=== PATIENT | female | born 1935 | race Caucasian/White ===

== ENCOUNTER 2016-08-09 13:36 | Inpatient (IN) | payer MEDICARE ==
[~2016-08-09] VITALS: Ht 152.4 cm; Wt 49.0 kg
[2016-08-09] VITALS (13 sets, daily range): BP systolic 126–148; BP diastolic 52–87
--- NOTE | 2016-08-09 13:39 | NUR ---
PT TO ER BED . SANJANA ARCEO, PT WAS FOUND ON FLOOR AT HOME ALTERED, LAST KNOWN WELL UNKNOWN. CHANGED TO GOWN. CONNECTED TO MONITOR. SIDE RAISL UP. HOB FLAT. Patient arrived in full C-Spine precautions with hard C-collar and backboard in place. ED notified. O2 VIA N/C @ 2 L/M. AT BEDSIDE FOR EVAL. Addendum: 08/09/16 at 1415 by ARSALAN Patient arrived on backboard and NOT in full C-Spine precautions without hard C-collar.
[2016-08-09] MEDS ORDERED: MIDAZOLAM HCL 2 MG/2ML VIAL ONE (13:40)
[2016-08-09 13:46] LABS: BASOPHILS # (AUTO) 0.1 /CMM (0.0-0.2); BASOPHILS % (AUTO) 0.5 % (0.0-2.0); EOSINOPHILS % (AUTO) 0.1 % (0.0-6.0); HEMATOCRIT 45 % (33-45); HEMOGLOBIN 14.5 g/dL (11.5-14.8); LYMPHOCYTES # (AUTO) 1.4 /CMM (0.8-4.8); LYMPHOCYTES % (AUTO) 8.4 % (20.0-44.0); MEAN CORPUSCULAR HEMOGLOBIN 27 PG (26.0-33.0); MEAN CORPUSCULAR HGB CONC 32 g/dl (31.0-36.0); MEAN CORPUSCULAR VOLUME 85 fL (82-100); MONOCYTES # (AUTO) 0.8 /CMM (0.1-1.30); MONOCYTES % (AUTO) 4.8 % (2.0-12.0); NEUTROPHILS # (AUTO) 14.2 /CMM (1.8-8.9); NEUTROPHILS % (AUTO) 86.2 % (43.0-81.0); PLATELET COUNT (AUTO) 289 /CMM (150-450); RDW COEFFICIENT OF VARIATION 12.9 (11.5-15.0); WHITE BLOOD COUNT (AUTO) 16.5 K/uL (4.3-11.0)
--- NOTE | 2016-08-09 13:54 | NUR ---
URINE SAMPLE COLLECTED VIA 16Fr AMADOR CATHETER. PT TOLERATED PROCEDURE WELL. ( ) FR amador catheter inserted per sterile protocal. Immediate output (100 )ML of urine, color (YELLOW ), clarity (CLEAR ). Female yarder accompanied female patient for (AMADOR CATHETER ).
[2016-08-09 13:56] LABS: CALCIUM, SERUM 10.3 mg/dL (8.5-10.1); CREATININE 0.7 mg/dL (0.6-1.3); POTASSIUM 4.2 mmol/L (3.5-5.1)
[2016-08-09] MEDS ORDERED: IV SET PRIMARY PUMP SET 1 EA INFUS.SET MC ONE ×3 (13:58→18:10)
[2016-08-09] MEDS ORDERED: IV NS 0.9% 1,000 ML ONE (13:58)
--- NOTE | 2016-08-09 13:58 | NUR ---
BLOOD CULTURES COLLECTED BY PRIMARY HEALTH ORGANISATION MANAGER PRIOR TO IV ATB ADMINISTRATION.
[2016-08-09] MEDS ORDERED: IV NS 0.9% 1,000 ML BAG IV ONE (14:00)
[2016-08-09] MEDS ORDERED: MIDAZOLAM HCL 2 MG/2ML VIAL IV ONE (14:00)
[2016-08-09 14:02] LABS: ALBUMIN 4.2 g/dL (3.4-5.0); BILIRUBIN,DIRECT 0.4 mg/dL (0.0-0.2); BILIRUBIN,TOTAL 1.5 mg/dL (0.2-1.0)
[2016-08-09 14:17] LABS: TROPONIN I 0.513 ng/mL (0.00-0.056)
[2016-08-09] MEDS ORDERED: LORAZEPAM INJ 2 MG/ML VIAL ONE ×2 (14:17→15:16)
[2016-08-09 14:18] LABS: APPEARANCE,URINE Clear (CLEAR); BILIRUBIN,URINE Negative (NEGATIVE); BLOOD, URINE Trace-lysed Ery/uL (NEGATIVE); COLOR,URINE Dark (YELLOW); KETONES,URINE 15 (NEGATIVE); LEUKOCYTE ESTERASE ,URINE Negative (NEGATIVE); NITRITE, URINE Negative (NEGATIVE); PH,URINE 5.5 (5.0-8.0); PROTEIN,URINE 100 mg/dl (NEGATIVE); UGLUCOSE Negative (NEGATIVE); UROBILINOGEN,URINE 0.2 EU/dL (0.2)
[2016-08-09] MEDS ORDERED: CT SWABBABLE VALVE TRANS SET 1 EA INFUS.SET MC ONE (14:20)
[2016-08-09] MEDS ORDERED: IOHEXOL-350 100 ML VIAL IV ONE (14:20)
[2016-08-09] MEDS ORDERED: IV NS 0.9% 250 ML IV ONE (14:20)
[2016-08-09] MEDS ORDERED: LORAZEPAM INJ 2 MG/ML VIAL IV ONE ×2 (14:30→15:30)
[2016-08-09 14:35] LABS: LACTIC ACID 1.9 mmol/L (0.4-2.0)
--- NOTE | 2016-08-09 14:38 | NUR ---
CALLED, TRANSFERRED CALL TO
--- NOTE | 2016-08-09 14:42 | NUR ---
1 MG OF ATIVAN GIVEN PER DR. SHEEHAN'S ORDER, THE DOSE WAS EFFECTIVE FOR PATIENT.
[2016-08-09 14:43] LABS: RBC,URINE 0-3 /HPF (0-2); WBC,URINE 0-2 /HPF (0-3)
[2016-08-09 14:44] LABS: ADD URINE CULTURE NO; BACTERIA,URINE Few /HPF (None Seen); SQUAMOUS EPITHELIAL CELL,UR Few /HPF (None Seen)
[2016-08-09] MEDS ORDERED: NICARDIPINE IN DEXTROSE,ISO-OS 200 ML IV ONE (14:48)
--- NOTE | 2016-08-09 14:50 | NUR ---
CALLED NURSING SUP. FOR ICU BED
[2016-08-09] MEDS ORDERED: NICARDIPINE IN DEXTROSE,ISO-OS 200 ML IV PRN ×2 (15:00→17:30)
--- NOTE | 2016-08-09 15:05 | NUR ---
EPIC PAGED, DR KHADRA Vo HUMIDIFIER MAINTENANCE WORKER
[2016-08-09] MEDS ORDERED: LABETALOL 20 MG/4 ML VIAL ONE (15:09)
[2016-08-09 15:10] LABS: INR 0.99 (0.87-1.13); PROTHROMBIN TIME 10.7 SECS (9.5-12.7)
[2016-08-09] MEDS ORDERED: LABETALOL 20 MG/4 ML VIAL IV ONE (15:30)
--- NOTE | 2016-08-09 15:40 | NUR ---
CARDENE INCREASED TO 7MG/HR
[2016-08-09 16:02] LABS: CREATINE KINASE MB 12.6 ng/mL (0-3.6)
[2016-08-09] MEDS ORDERED: Z GUARD REMEDY 2 OZ OINT TP PRN (16:30)
[2016-08-09] MEDS ORDERED: MORPHINE SULFATE INJ 2 MG/ML DISP.SYRIN IV PRN (16:30)
[2016-08-09] MEDS ORDERED: ACETAMINOPHEN 650 MG/SUPP.RECT RC PRN (16:30)
[2016-08-09] MEDS ORDERED: ONDANSETRON HCL/PF 4 MG/2 ML VIAL IVP PRN (16:30)
--- NOTE | 2016-08-09 17:15 | NUR ---
METALS ANALYST; ASSESSMENT RECEIVED PT FROM ER VIA RNEY. PT PLACED ON ICU BED AND ASPHALT SCREED OPERATOR. NOTED SINUS TACH RHYTHM.NOTED PT ON CARDENE DRIP AT 7MG/HR. WILL CLARIFY ORDERS WITH PRIMARY MD FOR B/P PARAMETERS. NOTED RIGHT HEMIPLEGIA WITH LEFT SIDE LOWER EXTREMITY POSTURING TO PAINFUL STIMULI. NOTED CASPER PUPILS SLUGGISH AND ABOUT 1CM OF DILATION. NOTED MULTIPLE BRUISING TO RIGHT SIDE OF FACE, ARM, AND HIP. PT NON VERBAL RESPONSIVE TO DEEP PAINFUL STIMULI. NOTED LEFT SIDE OF BODY MOVING BUT WITH NO PURPOSEFUL MOVEMENT. WILL CONTINUE TO MONITOR CLOSELY FOR CHANGES OF MENTAL STATUS
[2016-08-09] MEDS: DEXAMETHASONE SOD PHOSPHATE 10 MG/ML VIAL IV SCH ×2 (17:16→21:20)
[2016-08-09 18:00] LABS: ABG BASE EXCESS -1.6 mmol/L; ABG PCO2 32.7 mmHg (35.0-45.0); ABG PH 7.439 (7.350-7.450); ABG PO2 99.9 mmHg (75.0-100.0); ABG TOTAL HEMOGLOBIN 11.4 G/dL (12.0-16.0); AaDO2 75.6 mmHg; COHb 3.1 % (0.5-1.5); MetHb 1.1 % (0.0-1.5); O2Hb 93.3 % (94.0-97.0); SITE, ABG Right Radial
[2016-08-09] MEDS: IV D5/0.45 NACL 1,000 ML IV PRN (18:15)
--- NOTE | 2016-08-09 18:32 | NUR ---
CERTIFIED MASSAGE THERAPIST; MD PRIMARY DR. KHADRA RODRIGUEZ AT BEDSIDE UPDATE GIVEN. DR. GAVIRIA WAS ABLE TO SPEAK WITH PTS DAUGHTER JAIDEN AND GIVE HER UPDATE OF PTS STATUS AND PLAN OF CARE AND PTS PROGNOSIS. NEW ORDERS GIVEN FOR ABG, STAT HEAD CT AND PARAMETERS FOR CARDENE DRIP. ORDERS ENTERED
--- NOTE | 2016-08-09 19:35 | NUR ---
PHOTOLITHOGRAPHER RCD PT WITH ACUTE INTRACRANIAL HEMORRHAGE; PT IS NON RESPONSIVE; NSR ON MONITOR. CLEAR LUNG SOUNDS ON 02 2L NC. DAY CATHETER DRAINING SMALL AMOUNT OF DARK URINE. MONITOR BP; CARDENE DRIP NEEDED.
[2016-08-10] VITALS (31 sets, daily range): BP systolic 111–169; BP diastolic 53–107
[2016-08-10] MEDS: DEXAMETHASONE SOD PHOSPHATE 10 MG/ML VIAL IV SCH ×6 (01:36→20:07)
[2016-08-10 05:44] LABS: BASOPHILS % (AUTO) 0.6 % (0.0-2.0); HEMATOCRIT 38 % (33-45); HEMOGLOBIN 12.3 g/dL (11.5-14.8); LYMPHOCYTES # (AUTO) 0.8 /CMM (0.8-4.8); LYMPHOCYTES % (AUTO) 9.6 % (20.0-44.0); MEAN CORPUSCULAR HEMOGLOBIN 28 PG (26.0-33.0); MEAN CORPUSCULAR HGB CONC 33 g/dl (31.0-36.0); MEAN CORPUSCULAR VOLUME 85 fL (82-100); MONOCYTES # (AUTO) 0.2 /CMM (0.1-1.30); MONOCYTES % (AUTO) 1.8 % (2.0-12.0); NEUTROPHILS # (AUTO) 7.3 /CMM (1.8-8.9); PLATELET COUNT (AUTO) 215 /CMM (150-450); RDW COEFFICIENT OF VARIATION 13.7 (11.5-15.0); RED BLOOD CELL COUNT(AUTO) 4.44 MIL/uL (4.0-5.2); WHITE BLOOD COUNT (AUTO) 8.3 K/uL (4.3-11.0)
[2016-08-10 05:45] LABS: THYROID STIMULATING HORMONE 0.424 uIU/mL (0.358-3.74)
[2016-08-10 05:49] LABS: CALCIUM, SERUM 9.2 mg/dL (8.5-10.1); CREATININE 0.6 mg/dL (0.6-1.3); PHOSPHORUS 2.8 mg/dL (2.5-4.9); POTASSIUM 3.6 mmol/L (3.5-5.1)
--- NOTE | 2016-08-10 06:22 | NUR ---
AGRISCIENCE TECHNOLOGY INSTRUCTOR MULTIPLE CALLS TO RADIOLOGY FOR HEAD CT RESULTS; THEY WILL CALL FOR IT TO BE READ. RESULTS CONTINUE TO BE PENDING.
--- NOTE | 2016-08-10 06:47 | NUR ---
SWEAT BAND SEPARATOR S/W CRYSTAL REGARDING HEAD CT; WILL PLACE IN ORDER TO BE READ BY .
[2016-08-10] MEDS: IV D5/0.45 NACL 1,000 ML IV PRN ×2 (06:51→07:14)
--- NOTE | 2016-08-10 07:30 | NUR ---
DR MUÑIZ IN TO EXAMINE PT AND R/V LABS. PT CURRENTLY UNRESPONSIVE WITH HEAD TURNED TO LEFT. RT UPPER AND LOWER EXTREMS FLEXED AND WITHOUT MOVEMENT. PUPILS PINPOINT AND NON REACTIVE
--- NOTE | 2016-08-10 08:00 | NUR ---
PT SUDDENLY AWAKE AND CONVERSANT WITH DYSARTHRIC SPEECH, INTACT SENSE OF HUMOR, ASKING QUESTIONS REGARDING EVENTS. ABOUT 50% OF SPEECH IS INTELLIGIBLE. MILD RUE/RLE HEMIPARESIS. CANDACE. TENDS TO LEAN TO RT AND MOVES BODY RT SIDE RAILS
[2016-08-10 08:21] LABS: CREATINE KINASE MB 3.1 ng/mL (0-3.6)
[2016-08-10] MEDS ORDERED: PANTOPRAZOLE 40 MG VIAL IV SCH (09:00)
--- NOTE | 2016-08-10 09:00 | NUR ---
DR KHADRA RODRIGUEZ IN TO R/V. SEE NEW ORDERS
--- NOTE | 2016-08-10 10:00 | NUR ---
SPEECH RX UNAVAILABLE. BEDSIDE SWALLOW W RN AND FAMILY-NO COUGH NO DELAY. PT C/O HUNGER AND WANTS TO BE FED
--- NOTE | 2016-08-10 12:00 | NUR ---
GOAL SBP 160 MET WITHOUT RX. OK FULL LIQS WELL. NO CHANGE IN NEURO
--- NOTE | 2016-08-10 15:58 | NUR ---
REMAINS AWAKE, CONVERSANT ALBEIT 50% OF SPEECH IS DYSPHASIC. NO PROBLEMS SWALLOWING. HAS RT SIDED NEGLECT AND DOES NOT MOVE RUE TO COMMAND BUT DOES USE RUE SPONTANEOUSLY
--- NOTE | 2016-08-10 18:29 | NUR ---
CONTINUED IMPROVEMENT IN NEURO. NOW FEEDING HERSELF WITH HER RIGHT HAND A CHOPPED CARDIAC DIET-100% EATEN PLUS OUTSIDE FOOD. CONTINUALLY INTERACTIVE WITH SOME FULL CLEAR APPROPRIATE SENTENCES. VERY WARM SENSE OF HUMOR BUT IS FRUSTRATED WITH HER DYSPHASIA. RT SIDED NEGLECT WITH MILD WEAKNESS RUE/RLE REMAIN. SBP 160 GOAL WITHOUT ANTIHYPERTENSIVES
--- NOTE | 2016-08-10 19:46 | NUR ---
FRUIT DRYER RCD PT A/O x3; PT SPEECH CLEAR/GARBLED. ST ON MONITOR. ON ROOM AIR. NO DISTRESS NOTED. DAY CATHETER DRAINING ADEQUATE AMOUNT OF YELLOW URINE. DAUGHTER AT BEDSIDE. PT ABLE TO RAISE BOTH ARMS HOWEVER UNABLE TO CARTON MARKER MACHINE WITH RIGHT HAND. PT ASKING QUESTIONS ABOUT WHEN SHE WILL BE GET TO GO HOME. CONTINUE TO MONITOR.
--- NOTE | 2016-08-10 22:00 | NUR ---
BOBBIN PAINTER UPON PT DAUGHTER LEAVING PT BECAME RESTLESS WITH MOMENTS OF CONFUSION. PULLING AT IV LINES AND ATTEMPTING TO GET OUT OF BED. CALLED PLACED TO DAUGHTER TO INFORM OF NEED TO PLACE BL SOFT WRIST RESTRAINTS. DAUGHTER OPTED TO COME SIT WITH PT INSTEAD. CONTINUE TO MONITOR.
[2016-08-11] VITALS (29 sets, daily range): BP systolic 126–197; BP diastolic 58–137
--- NOTE | 2016-08-11 00:08 | NUR ---
ROUTE DELIVERY SERVICE DRIVER DAUGHTER LEFT BEDSIDE. PT CALM AT THIS TIME. REQUESTING TO SLEEP. CONTINUE TO MONITOR.
--- NOTE | 2016-08-11 00:56 | NUR ---
LINE PALLETIZER PT SLEEPING AT THIS TIME.
[2016-08-11] MEDS: DEXAMETHASONE SOD PHOSPHATE 10 MG/ML VIAL IV SCH ×2 (01:07→05:43)
[2016-08-11 05:21] LABS: BASOPHILS % (AUTO) 0.1 % (0.0-2.0); HEMATOCRIT 35 % (33-45); HEMOGLOBIN 11.5 g/dL (11.5-14.8); LYMPHOCYTES # (AUTO) 1.1 /CMM (0.8-4.8); LYMPHOCYTES % (AUTO) 7.3 % (20.0-44.0); MEAN CORPUSCULAR HEMOGLOBIN 28 PG (26.0-33.0); MEAN CORPUSCULAR HGB CONC 33 g/dl (31.0-36.0); MEAN CORPUSCULAR VOLUME 84 fL (82-100); MONOCYTES # (AUTO) 0.4 /CMM (0.1-1.30); MONOCYTES % (AUTO) 2.5 % (2.0-12.0); NEUTROPHILS # (AUTO) 13.8 /CMM (1.8-8.9); NEUTROPHILS % (AUTO) 90.1 % (43.0-81.0); PLATELET COUNT (AUTO) 217 /CMM (150-450); RDW COEFFICIENT OF VARIATION 13.5 (11.5-15.0); RED BLOOD CELL COUNT(AUTO) 4.16 MIL/uL (4.0-5.2); WHITE BLOOD COUNT (AUTO) 15.3 K/uL (4.3-11.0)
[2016-08-11 05:38] LABS: TROPONIN I 0.088 ng/mL (0.00-0.056)
[2016-08-11 05:39] LABS: BILIRUBIN,TOTAL 0.6 mg/dL (0.2-1.0); CALCIUM, SERUM 9.4 mg/dL (8.5-10.1); CREATININE 0.7 mg/dL (0.6-1.3); MAGNESIUM 1.9 mg/dL (1.8-2.4); PHOSPHORUS 2.1 mg/dL (2.5-4.9); POTASSIUM 3.6 mmol/L (3.5-5.1); TOTAL PROTEIN, SERUM 6.3 g/dL (6.4-8.2)
[2016-08-11] MEDS: IV D5/0.45 NACL 1,000 ML IV PRN (05:45)
--- NOTE | 2016-08-11 07:30 | NUR ---
PT AWAKE, RESTLESS, BUT COOPERATIVE. SENSE OF HUMOR INTACT. SPEECH DYSPHASIC WITH SOME WHOLE COMPLETE CLEAR SENTENCES-UNCHANGED. RT SIDED NEGLECT UNCHANGED. RT UE AND LE HEMIPARESIS UNCHANGED. ABLE TO SWALLOW WELL. D/W DR MUÑIZ HTN AND RX. LABS R/V'D. MEDS FOR HTN ADDED. NEURO UNCHANGED EXCEPT FOR RESTLESSNESS. D/W . STEROID DOSING REDUCED
[2016-08-11] MEDS: PANTOPRAZOLE 40 MG TABLET.DR PO SCH (07:41)
[2016-08-11] MEDS: NIFEdipine XL (30MG) 30 MG TAB PO SCH (07:42)
[2016-08-11] MEDS ORDERED: NITROGLYCERIN PACKET 1 GM PACKET TOP SCH ×3 (08:00→12:00)
[2016-08-11] MEDS ORDERED: hydrALAZINE HCL IV 20 MG VIAL ONE (09:28)
[2016-08-11] MEDS: hydrALAZINE HCL 25 MG TABLET PO SCH ×3 (09:30→20:42)
[2016-08-11] MEDS ORDERED: hydrALAZINE HCL IV 20 MG VIAL IV PRN (09:30)
--- NOTE | 2016-08-11 09:51 | NUR ---
ONGOING D/W DR MUÑIZ REGARDING HTN. PT RESTLESS BUT WITHOUT CHANGE IN NEURO STATUS. RX WITH IVP APRESOLINE, PO PROCARDIA, NTG PASTE CHEST WALL WITH DECREASE IN HTN-SEE VS
--- NOTE | 2016-08-11 11:35 | NUR ---
D/W DR RODRIGUEZ AND PT'S CHILDREN BP, MEDS, NEURO, CONFUSION, REHAB PLAN ? [facility]. ALL DECADRON D/C'D-"NO NEED FOR TAPER" PER
[2016-08-11] MEDS ORDERED: DEXAMETHASONE SOD PHOSPHATE 10 MG/ML VIAL IV SCH (12:00)
--- NOTE | 2016-08-11 13:08 | NUR ---
EPISODIC HTN RX WITH MEDS ORDERED WITH RESOLUTION
--- NOTE | 2016-08-11 15:45 | NUR ---
NEUROLOGIST DR RODRÍGUEZ IN TO EXAMINE PT. FOR CAROTID STUDY IN AM
[2016-08-11] MEDS ORDERED: K PHOS NEUTRAL 250 MG TABLET PO ONE (16:00)
[2016-08-11 17:24] LABS: CANNABINOID, URINE NEGATIVE (NEGATIVE); PHENCYCLIDINE SCREEN,URINE NEGATIVE (NEGATIVE)
[2016-08-11] MEDS: NITROGLYCERIN 30 GM TUBE TP SCH ×2 (18:03→23:47)
--- NOTE | 2016-08-11 18:14 | NUR ---
OOB TO CHAIR TO EAT. REQ. 2 PEOPLE WAS VERY WEAK AND COULD NOT SUPPORT HER WEIGHT. SPEECH REMAINS EXPRESSIVE AND RECEPTIVE DYSPHASIA. RT UE AND LE HEMIPARESIS. BP UNDER BETTER CONTROL ON RX
--- NOTE | 2016-08-11 20:00 | NUR ---
PUMP ERECTOR HELPER PT IN BED RESTING .PT DENIES ANY SOB ON ROOM AIR. PT C/O DISCOMFORT NEAR FC. FAMILY AT BEDSIDE. DAUGHTER UPDATED. DALIA CARE DONE AND DAY ANCHORED TO LEG FOR DISCOMFORT. REPOSITIONED AND FLUIDS PROVIDED. IV INTACT AND PATIENT . HOB ELEVATED . BP TO NBE KEPT BETWEEN 140-160 . WILL CONTINUE TO MONITOR.
[2016-08-12] VITALS (10 sets, daily range): BP systolic 128–154; BP diastolic 62–89
--- NOTE | 2016-08-12 02:15 | NUR ---
LIBRARY MEDIA TECHNICIAN BP LOW . NITRO PATCH REMOVED TO MAINTAIN GOAL SBP
--- NOTE | 2016-08-12 04:00 | NUR ---
RN NOTES ADMITTED A 80 YEARS OLD FEMALE PT FROM ICU WITH PRIMARY DIAGNOSIS OF ACUTE INTRACRANIAL HEMORRHAGE UNDER DR. RODRIGUEZ. PT ALERT AND ORIENTED X2 WITH CONFUSION AND FORGETFULNESS. VITAL SIGNS STABLE, AFEBRILE. NO SOB, NOT IN DISTRESS AND TOLERATING ROOM AIR. DENIES PAIN, NAUSEA AND VOMITING. VERBALIZING DISCOMFORT WITH DAY CATH. LEFT AND RIGHT FOREARM IV ACCESS PATENT AND INTACT. ATTACHED TO TELEMONITOR WHICH READS SINUS RHYTHM WITH PAC'S AND INVERTED T WAVE. NOTED WITH BRUISING ON LEFT SIDE OF THE FACE, BOTH UPPER EXTREMITY AND RIGHT KNEE SECONDARY TO FALL. DAY CATH INTACT WITH CLEAR URINE OUTPUT AT 1200ML, FOR D/C AT 0600 ORDERED. KEPT COMFORTABLE AND ATTENDED. WILL CONTINUE TO MONITOR PT.
[2016-08-12] MEDS: hydrALAZINE HCL 25 MG TABLET PO SCH ×3 (05:00→20:49)
--- NOTE | 2016-08-12 05:21 | NUR ---
PRICING/SIGNAGE TEAM MEMBER PT TRANSFERRED TO 3W ROOM 309 . NO BELONGINGS FOUND BEDSIDE BESIDES A HEEL PROTECTOR , NO BELONGINGS LIST IN CHART. PT TRANSFERRED W HEEL PROTECTOR. REPORT GIVEN TO JAYME MORRIS. WILL INFORM FAMILY OF ROOM CHANGE.
--- NOTE | 2016-08-12 05:21 | NUR ---
RN NOTES APRESOLIN 50 MGS NOT ADMINISTERED PER PARAMETER, BP IS 130/57.
[2016-08-12] MEDS: NITROGLYCERIN 30 GM TUBE TP SCH ×3 (06:00→17:42)
--- NOTE | 2016-08-12 06:00 | NUR ---
RN NOTES DAY CATH REMOVED ORDERED, WITH URINE OUTPUT AT 1300ML.
--- NOTE | 2016-08-12 06:16 | NUR ---
RN NOTES NITROL OINTMENT NOT ADMINISTERED PER BP PARAMETER, BP 128/62.
--- NOTE | 2016-08-12 07:45 | NUR ---
teleservices representative initial notes received patient in bed, awake, head of bed elevated, no SOB or distress noted. on room air and tolerated well. Patient is alert and oriented x 2 with confusion, british speaking with a little burkinan. On tele monitor ST heart rate of 103. No facial grimace noted. IV intact and patent HL only. Endorsed by weight shifter s/p amador removal will monitor for urine retention. Kept patient clean and comfortable in bed, call light with in patient reach, will continue to monitor accordingly.
--- NOTE | 2016-08-12 07:55 | NUR ---
RN NOTES.. PT ASLEEP IN BED, NO SOB, NOT IN DISTRESS , NO SIGNS OF DISCOMFORT NOTED, TOLERATING ROOM AIR. HYDRALAZINE 50MG AND NITRO OINTMENT NOT ADMINISTERED PER BP PARAMETER. NOTED WITH PERIODS OF FORGETFULNESS AND CONFUSION, REORIENT PT NEEDED. DAY CATH WAS REMOVED, PLS MONITOR FOR RETENTION. KEPT CLEAN AND DRY. ALL NEEDS ATTENDED. WILL ENDORSE TO MORNING RN FOR ELEANOR.
[2016-08-12] MEDS: PANTOPRAZOLE 40 MG TABLET.DR PO SCH (09:00)
[2016-08-12] MEDS: NIFEdipine XL (30MG) 30 MG TAB PO SCH (09:00)
--- NOTE | 2016-08-12 12:26 | NUR ---
well driller notes Held Hydralazine and Nitro due to BP 130/66. Will continue to monitor accordingly.
--- NOTE | 2016-08-12 15:54 | NUR ---
negotiator sales notes Result of the lab taken 08/10/16 LDL of 119 and patient refused to take any medications except of the current medication profile. Explained the risk and benefits to the patient and family and still refused statin medications. Will continue to monitor accordingly.
--- NOTE | 2016-08-12 19:11 | NUR ---
telegraph repeater installer closing notes All needs provided, attended, and anticipated. On tele monitor ST heart rate of 115. No complaint of pain or discomfort. kept patient clean and comfortable in bed, call light with in patient reach, will continue to monitor accordingly. Endorsed to next shift RN to continue care.
--- NOTE | 2016-08-12 19:13 | NUR ---
RN NOTES RECEIVED PT IN BED, WITH DAUGHTER AT BEDSIDE, ALERT AND ORIENTED X2 WITH PERIODS OF CONFUSION NOTED, NO SOB, NOT IN DISTRESS, DENIES ANY PAIN AT THIS TIME. ON ROOM AIR AND TOLERATED WELL. TELEMONITOR READS SINUS TACH WITH HEART RATE AT 103. IV ACCESS ON RIGHT AND LEFT FOREARM PATENT AND INTACT, NO SIGN OF INFILTRATE NOTED. KEPT BED IN THE LOWEST POSITION, LOCKED, SIDE RAILS UP, WITH CALL LIGHT WITH IN REACH. WILL CONTINUE TO MONITOR PT.
--- NOTE | 2016-08-12 20:00 | NUR ---
RN NOTES PT WAS MOVED TO RM 329 BECAUSE PT IS HAVING DISCOMFORT AT THE SCENT OF THE ROOM.
[2016-08-13] VITALS (9 sets, daily range): BP systolic 131–166; BP diastolic 61–109
--- NOTE | 2016-08-13 00:47 | NUR ---
RN NOTES NITROL OINTMENT NOT ADMINISTERED PER BP PARAMETER, BP 131/61.
[2016-08-13] MEDS: hydrALAZINE HCL 25 MG TABLET PO SCH ×3 (04:58→20:00)
[2016-08-13] MEDS: NITROGLYCERIN 30 GM TUBE TP SCH ×5 (06:37→23:44)
--- NOTE | 2016-08-13 07:25 | NUR ---
RN NOTES PT ASLEEP IN BED, NO SOB, NO SIGNS OF DISTRESS AND DISCOMFORT NOTED, TOLERATING ROOM AIR. ALL DUE MEDS GIVEN, VITAL SIGNS STABLE, AFEBRILE. NO EPISODE OF NAUSEA AND VOMITING . NO COMPLAIN OF PAIN. TELEMONITOR READS SINUS TACH AT 102. ALL NEEDS ATTENDED. KEPT CLEAN AND DRY, FALL PTRECAUTION OBSERVED. ENDORSED TO MORNING RN FOR CONTINUITY OF CARE.
--- NOTE | 2016-08-13 07:30 | NUR ---
pilot initial notes Received patient in bed, awake, head of bed elevated, no SOB or distress noted. Alert and oriented x 2 with confusion. On tele monitor ST heart rate of 115. No facial grimace noted. Bed alarm on. IV intact and patent. Kept patient clean and comfortable in bed, call light with in patient reach, will continue to monitor accordingly.
[2016-08-13] MEDS: NIFEdipine XL (30MG) 30 MG TAB PO SCH (09:00)
[2016-08-13] MEDS: PANTOPRAZOLE 40 MG TABLET.DR PO SCH (09:00)
--- NOTE | 2016-08-13 09:38 | NUR ---
electric meter technician notes patient refused to take her medications and daughter Isidra at bedside, explained the risk and benefits to the patient and daughter and able to understand and still refused medications. Per daughter her mom doesn't really take any medications. Will monitor patient accordingly.
--- NOTE | 2016-08-13 12:23 | NUR ---
MS RN NOTES Patient refused to take her medications explained the risk and benefits x 3 and still refused. Will continue to monitor patient accordingly.
--- NOTE | 2016-08-13 19:21 | NUR ---
MS RN closing notes All needs provided, attended, and anticipated. endorsed to next shift RN to continue care. Kept patient clean and comfortable in bed, call light with in patient reach, will continue to monitor accordingly.
--- NOTE | 2016-08-13 19:30 | NUR ---
MS RN OPENING NOTES: PATIENT IN BED, AOX2, CONFUSED AND APPEARS ANXIOUS. VERBALIZES THAT SHE DOES NOT WANT TO TAKE ANY MEDICATIONS ANYMORE. DAUGHTER AT BEDSIDE. ON ROOM AIR, BREATHING EVEN AND UNLABORED. BREATH SOUNDS CLEAR TO AUSCULTATION. NOTED BRUISING OVER R SIDE OF FACE, WELL ON R KNEE. NOTED R SIDED WEAKNESS WELL. NO GROSS ASYMMETRY OF FACE OR FACIAL DROOP NOTED. PATIENT DID HAVE DIFFICULTY PUTTING TOGETHER HER SENTENCE, BUT WAS OTHERWISE ABLE TO MAKE NEEDS KNOWN. PIV ACCESS OVER LFA G 20 INTACT AND PATENT TO FLUSH. PROVIDED FOR COMFORT AND SAFETY. WILL CONT TO MONITOR.
--- NOTE | 2016-08-13 20:30 | NUR ---
RN NOTES: PATIENT'S INITIAL BP AT 166/109, HR AT 106. PATIENT HAS SCHEDULED APRESOLINE AT 2100 PM. PATIENT INITIALLY REFUSED TO TAKE THE MEDICATION, SAYING IT MAKES HER FEEL TERRIBLE. DAUGHTER EXPLAINED THAT PATIENT IS VERY SENSITIVE TO MEDICATIONS, AND DOES NOT TAKE ANYTHING AT ALL BEFORE SHE GOT HOSPITALIZED. EXPLAINED TO PATIENT AND DAUGHTER REGARDING BP CONTROL AND NEED FOR MEDICATIONS. PATIENT THEN AGREED TO TAKE APRESOLINE PO. WILL CONT TO MONITOR.
--- NOTE | 2016-08-13 21:50 | NUR ---
RN NOTES: PATIENT IN BED, WITH DAUGHTER AT BEDSIDE. DAUGHTER STATES THAT PATIENT IS HYPERSENSITIVE TO ANY ORAL MEDICATIONS, AND CAUSES PATIENT TO "TREMBLE". PATIENT STATES THAT SHE "FEELS TERRIBLE" BUT WAS NOT ABLE TO ELABORATE BETTER ON HER SYMPTOMS. DENIES ANY HEADACHE, OR ALLERGIC SYMPTOMS LIKE , ITCHING. PER PATIENT, IT IS CAUSED BY THE APRESOLINE SHE JUST TOOK. OFFERED MILD PAIN RELIEVER BUT PATIENT DECLINED TYLENOL. DAUGHTER AT BEDSIDE UNTIL PATIENT ABLE TO SLEEP.
[2016-08-14] VITALS: BP 155/75
--- NOTE | 2016-08-14 04:18 | NUR ---
RN NOTES: PATIENT WAS SEEN TO HAVE REMOVED HER GOWN FROM TOP TO WAIST. WHEN ASKED IF GOWN CAN BE PLACED BACK ON HER, SHE SAID , "I JUST DON'T WANT IT.". WHEN ASKED IF SHE IS OK, PATIENT DID NOT GIVE ANY VERBAL REPLY, ONLY SHRUGGED SHOULDERS. WILL CONT TO MONITOR.
--- NOTE | 2016-08-14 04:55 | NUR ---
RN NOTES: PATIENT'S BP CHECKED AT 154/74, HR AT 98. EXPLAINED TO PATIENT THAT HYDRALAZINE 50 MG PO NEEDS TO BE TAKEN SCHEDULED. PATIENT REFUSED MEDICATION. EXPLAINED RISKS AND BENEFITS, PATIENT STILL REFUSED. ALSO OFFERED BED BATH FOR PATIENT, PATIENT DECLINED, SAYING SHE WANTS TO SLEEP. WILL CONT TO MONITOR.
[2016-08-14] MEDS: hydrALAZINE HCL 25 MG TABLET PO SCH ×2 (04:59→12:03)
[2016-08-14 05:00] VITALS: BP 154/74
[2016-08-14] MEDS: NITROGLYCERIN 30 GM TUBE TP SCH ×2 (05:46→12:00)
--- NOTE | 2016-08-14 06:25 | NUR ---
MS RN CLOSING NOTES: PATIENT IN BED, AOX2, ON ROOM AIR, BREATHING EVEN AND UNLABORED. PATIENT WAS ABLE TO SLEEP INTERMITTENTLY THROUGH NIGHT. REMAINS POORLY COMPLIANT WITH MEDICATIONS, FREQUENT TEACHINGS REGARDING NEED FOR MEDICATIONS GIVEN, HOWEVER, PATIENT STILL REFUSED PO APRESOLINE. PATIENT ALSO REFUSED MORNING CARE. PIV ACCESS OVER LFA G 20 INTACT AND PATENT TO FLUSH. PROVIDED FOR COMFORT AND SAFETY. MONITORED FOR ALTERATIONS IN LOC. MONITORED BP, WHICH REMAINS ELEVATED. WILL ENDORSE TO AM RN FOR ELEANOR.
[2016-08-14 08:00] VITALS: BP 135/77
--- NOTE | 2016-08-14 08:26 | NUR ---
MS/RN: NOTES PATIENT IS COMPLAINING NAUSEA, NO VOMITING NOTED. PATIENT REFUSED TO TAKE MEDICATION, EXPLAINED THE RISKS AND BENEFITS WITHOUT MEDICATION, STILL REFUSED.
--- NOTE | 2016-08-14 08:30 | NUR ---
MS RN RECEIVED ON BED, AWAKE,ALERT,ORIENTED X2,NOT IN ANY FORM OF DISTRESS, RESPIRATIONS EVEN AND UNLABORED,NO SOB NOTED,DENIES PAIN AT THIS TIME,ALL NEEDS ATTENDED.
[2016-08-14] MEDS: PANTOPRAZOLE 40 MG TABLET.DR PO SCH (09:00)
[2016-08-14] MEDS: NIFEdipine XL (30MG) 30 MG TAB PO SCH (09:00)
[2016-08-14 09:33] VITALS: BP 135/77
--- NOTE | 2016-08-14 09:40 | NUR ---
MS RN BREAKFAST SERVED,DUE MEDS REFUSED, PATIENT IS ALLERGIC TO B/P MEDS PER DAUGHTER.
--- NOTE | 2016-08-14 11:00 | NUR ---
MS RN WAS ABLE TO SPEAK W/ JANET,WILL GO TO [facility] TODAY.
--- NOTE | 2016-08-14 13:30 | NUR ---
MS RN PATIENT WENT TO [facility] W/ ORDERS, REPORT GIVEN TO JULIA MORRIS. NO DISTRESS NOTED,ALL NEEDS ATTENDED.
== END 2016-08-14 13:00 | DRG 64 ==
LOC: ER 13:39 → ICU 16:41 → MED 08-12 03:58 → TELE 08-12 05:59 → MED 08-12 20:14 → TELE 08-12 21:11 → MED 08-13 09:00
DX: I61.8 Other nontraumatic intracerebral hemorrhage (principal); I21.4 Non-ST elevation (NSTEMI) myocardial infarction; N17.0 Acute kidney failure with tubular necrosis; R65.10 Systemic inflammatory response syndrome (SIRS) of non-infectious origin without acute organ dysfunction; I66.23 Occlusion and stenosis of bilateral posterior cerebral arteries; M48.02 Spinal stenosis, cervical region; I10 Essential (primary) hypertension; D72.829 Elevated white blood cell count, unspecified; I65.29 Occlusion and stenosis of unspecified carotid artery; M19.90 Unspecified osteoarthritis, unspecified site; M25.78 Osteophyte, vertebrae
CPT/HCPCS: 36415; 36600; 70450-TC; 70486-TC; 70496-TC; 71010-TC; 72125-TC; 73510-TC; 80048-TC; 80053-TC; 80061-TC; 80076-TC; 80305; 81000-TC; 82550-TC; 82553-TC; 83605-TC; 83735-TC; 83880; 84100-TC; 84443-TC; 84484-TC; 85025-TC; 85730-TC; 86850-TC; 87040-TC; 92611-TC; 93307-TC; 93880-TC; 97001-TC; 97110-TC; 97116-TC; 97530-TC; A4606; C9113; J0360; J1100; J2060; J2250; J3490; J7030; J7050; Q9967; Z7610